=== PATIENT | male | born 1940 | race Caucasian/White ===

== ENCOUNTER 2019-11-19 20:52 | Emergency (ER) | payer MEDICARE ==
[2019-11-19 21:29] LABS: #Basophils 0.1 thou/uL (0.0-0.2); #Eosinphils 0.3 thou/uL (0.0-0.7); #Lymphocytes 1.4 thou/uL (1.20-3.40); #Monocytes 0.7 thou/uL (0.11-0.59); #Neutrophils 6.6 thou/uL (1.40-6.50); %Basophils 0.8 % (0.0-1.0); %Eosinophils 2.9 % (0.0-10.0); %Lymphocytes 15.9 % (21.0-51.0); %Monocytes 7.2 % (0.0-10.0); %Neutrophils 73.1 % (42.0-75.0); Hemoglobin 13.2 g/dL (14.0-18.0); Mean Corpuscular HGB CONC 34.8 g/dL (32.0-36.0); Mean Corpuscular Hemoglobin 30.7 pg (27.0-31.0); Mean Corpuscular Volume 88.3 fL (78.0-98.0); Platelet Count 193 thou/uL (130-400); RBC Distribution Width 11.8 % (11.5-14.5)
[2019-11-19 21:51] LABS: ALT (SGPT) 19 U/L (8-55); AST (SGOT) 20 U/L (5-34); Albumin 4.2 g/dL (3.4-4.8); Alkaline Phosphatase 48 U/L (40-110); Anion Gap 16 mmol/L (10-20); BUN (Urea Nitrogen) 42 mg/dL (8.4-25.7); Bilirubin, Total 0.3 mg/dL (0.2-1.2); Calc. Creatinine Clearance 0 mL/min (70-130); Calcium 9.1 mg/dL (7.8-10.44); Carbon Dioxide 29 mmol/L (23-31); Chloride 100 mmol/L (98-107); Estimated GFR-MDRD 28; Globulin 3.5 g/dL (2.4-3.5); Glucose 102 mg/dL (83-110); Potassium 3.8 mmol/L (3.5-5.1); Protein, Total 7.7 g/dL (5.8-8.1); Sodium 141 mmol/L (136-145)
== END 2019-11-20 00:08 | disposition home or self-care (01) ==
LOC: ERS 20:52
DX: E11.649 Type 2 diabetes mellitus with hypoglycemia without coma (principal); E11.22 Type 2 diabetes mellitus with diabetic chronic kidney disease; I12.9 Hypertensive chronic kidney disease with stage 1 through stage 4 chronic kidney disease, or unspecified chronic kidney disease; N18.4 Chronic kidney disease, stage 4 (severe); E78.5 Hyperlipidemia, unspecified; I42.9 Cardiomyopathy, unspecified; F32.9 Major depressive disorder, single episode, unspecified; Z79.4 Long term (current) use of insulin; Z79.899 Other long term (current) drug therapy
CPT/HCPCS: 36416; 80053; 85025; 99283

== ENCOUNTER 2020-07-16 07:36 | Inpatient (IN) | payer MEDICARE ==
[2020-07-16 08:28] LABS: #Basophils 0.1 thou/uL (0.0-0.2); #Eosinphils 0.3 thou/uL (0.0-0.7); #Lymphocytes 1.5 thou/uL (1.20-3.40); #Monocytes 0.8 thou/uL (0.11-0.59); #Neutrophils 10.5 thou/uL (1.40-6.50); %Basophils 0.5 % (0.0-1.0); %Eosinophils 2.1 % (0.0-10.0); %Lymphocytes 11.3 % (21.0-51.0); %Monocytes 6.1 % (0.0-10.0); Hemoglobin 13.7 g/dL (14.0-18.0); Mean Corpuscular Hemoglobin 27.8 pg (27.0-31.0); Mean Corpuscular Volume 86.8 fL (78.0-98.0); Mean Platelet Volume 9.8 fL (7.4-10.4); Platelet Count 285 thou/uL (130-400); RBC Distribution Width 12.2 % (11.5-14.5); Red Blood Cell (RBC) Count 4.93 mill/uL (4.70-6.10); White Blood Cell (WBC) Count 13.1 thou/uL (4.8-10.8)
[2020-07-16] MEDS ORDERED: Boostrix 0.5 ML (Tdap) VIAL ONE (08:31)
[2020-07-16 08:58] LABS: Bacteria/HPF 2+ HPF (None Seen); Bilirubin Negative (Negative); Blood, Urine 1+ (Negative); Clarity Turbid (Clear); Glucose, Urine (Dipstick) Normal (Negative); Ketone, Urine Negative (Negative); Leukocyte 500 Leu/uL (Negative); Nitrite 2+ (Negative); Protein, Urine (Dipstick) 70 mg/dL (Neg-Trace); Specific Gravity, Urine 1.015 (1.002-1.036); Squamous Epithelial 0-3 HPF (0-3); Urobilinogen Normal mg/dL (Less than 2); WBC/HPF Greater than 50 HPF (0-3)
[2020-07-16 09:03] LABS: PTT 32.6 sec (22.9-36.1); Prothrombin Time 13.7 sec (12.0-14.7)
[2020-07-16] MEDS ORDERED: VANCOMYCIN 1.75 GM/350 ML BAG 1.75 GM in Premix Bag 1 BAG IVPB SCH (10:00)
[2020-07-16 10:32] LABS: Albumin 3.3 g/dL (3.4-4.8)
[2020-07-16 10:33] LABS: Calcium 8.8 mg/dL (7.8-10.44); Chloride 97 mmol/L (98-107); Sodium 138 mmol/L (136-145)
[2020-07-16 10:34] LABS: Globulin 3.7 g/dL (2.4-3.5); Glucose 95 mg/dL (83-110)
[2020-07-16 10:36] LABS: Anion Gap 14 mmol/L (10-20); Bilirubin, Total 0.8 mg/dL (0.2-1.2); Carbon Dioxide 30 mmol/L (23-31)
[2020-07-16 10:37] LABS: Alkaline Phosphatase 73 U/L (40-110); Calc. Creatinine Clearance 0 mL/min (70-130)
[2020-07-16 10:43] LABS: ALT (SGPT) 11 U/L (8-55); AST (SGOT) 15 U/L (5-34); BUN (Urea Nitrogen) 12 mg/dL (8.4-25.7); CK (CPK) 36 U/L (30-200); Lipase 20 U/L (8-78)
--- NOTE | 2020-07-16 11:09 | CT ---
CT Cervical Spine WO Con Indication: Fall with altered mental status and possible neck injury COMPARISON: None. FINDINGS: Spinal alignment: No acute malalignment. Craniocervical junction: Within normal limits. Fracture: None. Vertebral body heights: Maintained. Prevertebral soft tissues:Normal appearing. Cervical spine degenerative change: There is mild multilevel cervical spondylosis. There is diffuse o steopenia. Lung apices: There is mild scarring within the left lung apex. IMPRESSION: No acute osseous abnormality.
--- NOTE | 2020-07-16 11:09 | CT ---
CT HEAD WITHOUT IV CONTRAST COMPARISON: None HISTORY: Altered mental status after fall. TECHNIQUE: Axial CT imaging at 5 mm intervals from vertex through skull base without contrast FINDINGS: There is decreased attenuation in the periventricular white matter which is nonspecific but likely re flective of chronic small vessel ischemic changes. There is mild cerebral volume loss. The ventricular system is normal in size, shape, and position for the degree of sulcal atrophy. There is no evidence of an acute infarction, hemorrhage, mass effect, or midline shift. Skull base has a normal CT appearance. Visualized paranasal sinuses are clear. Osseous structures appear intact. IMPRESSION: 1. No acute intracranial abnormality demonstrated. 2. Chronic small vessel ischemic changes and cerebral volume loss.
--- NOTE | 2020-07-16 11:20 | CT ---
CT OF THE CHEST, ABDOMEN AND PELVIS WITH IV CONTRAST CT OF THE THORACIC AND LUMBAR SPINE WITH CONTRAST INDICATION: History of fall with complaints of back pain COMPARISON: CT the abdomen and pelvis without contrast FINDINGS: CHEST: Lungs:No pulmonary contusion or pneumothorax evident. There are 2 sub-4 mm subpleural pulmonary nodul es within the right upper lobe laterally on image 29 series 3. There is scattered areas of subsegmental volume loss. There is areas of mild bronchiectasis and mild interstitial scarring involv ing both lower lobes. Heart and great vessels:There is a [id number] cardiomegaly. There coronary artery and thoracic aortic calcifications. Pleural space: No pneumothorax or effusion. Additional findings: There is mild aneurysmal dilatation of the distal aortic arch measuring 3.7 cm. There are severe vascular consultation involving the thoracic aorta. ABDOMEN: Liver:There is a 1.1 cm cyst within left hepatic lobe. There are scattered calcified granuloma. There are layered gallstones within the gallbladder Spleen:Calcified granuloma Pancreas:Normal appearing. Adrenal Glands:There are bilateral adrenal myelolipoma that appears similar to the comparison CT abdo men pelvis dated June 05, 2020. Kidneys:Resolution of the previously seen hydronephrosis. No focal renal lesion is evident. Aorta:There is stable excluded infrarenal abdominal aortic aneurysm measuring 5.8 cm. The aortic endo graft extending from the infrarenal abdominal aorta into both iliac arteries appear similar. Additional findings: There is a fat-containing umbilicus hernia. No free fluid or free air is demons trated. The laparoscopic gastric band is unchanged in position. PELVIS: Bowel:There is moderate amount retained stool within colon scattered diverticula. Small bowel is of n ormal caliber. Visualized stomach appears within normal limits. Gastric band as above. Bladder:Decompressed with a Gallardo catheter Reproductive structures:The prostate is enlarged measuring 5.2 cm. There are fat-containing inguinal hernias bilaterally, right greater than left. Rectum and perirectal soft tissues:Normal appearing. Additional findings: There are severe vascular calcifications seen involving the visualized vasculat ure. OSSEOUS STRUCTURES: There is a stable prominent wedge compression fracture of L1. There is a stable superior endplate com pression fracture of T12. There are age indeterminate mild wedge compression fractures of T3, T4, T5 and T6. There is diffuse osteopenia. There are healing rib fractures involving the anterior latera l right fourth through sixth ribs. There are minimally displaced acute fractures involving the anterolateral left third through sixth ribs. There is scattered degenerative and osteoarthritic changes. THORACIC AND LUMBAR SPINE: As above IMPRESSION: 1. No acute traumatic injury involving the chest, abdomen or pelvis. 2. Age-indeterminate wedge compression fractures of T3, T4, T5 and T6. Recommend correlation with the clinical examination for acute mild wedge compression fractures. A follow-up MRI may be helpful to evaluate acuity. Alternately, bone scan may be helpful to evaluate acuity. Stable compression abnorma lities of L1 and T12 as above. 3. Acute left third through sixth rib fractures. Healing appearing rib fractures involving the stephany lateral right fourth through sixth ribs. 4. Interval resolution of previously seen hydronephrosis. Gallardo catheter in decompressed bladder. 5. Cholelithiasis. 6. 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 Stable excluded infrarenal abdominal aortic aneurysm measuring 5.8 cm.
[2020-07-16] MEDS ORDERED: Iopamidol-370 76% 500 ML 1 ML ONE (11:46)
[2020-07-16 11:51] LABS: Lactic Acid 1.3 mmol/L (0.5-2.2)
[2020-07-16] MEDS ORDERED: cefTRIAXone\\ROCEPHIN 1 GM VIAL ONE (12:14)
[2020-07-16] MEDS ORDERED: hydrALAZINE 20 MG/ML VIAL SLOW IVP PRN (14:57)
[2020-07-16] MEDS ORDERED: Dextrose 50% Abboject 50 ML SYRINGE SLOW IVP PRN (14:57)
[2020-07-16] MEDS ORDERED: Ondansetron ODT 4 MG TAB PO PRN (14:57)
[2020-07-16] MEDS ORDERED: Dextrose 5% in Water 1,000 ML IV PRN (14:57)
[2020-07-16] MEDS ORDERED: Morphine 2 MG/ML VIAL SLOW IVP PRN (14:57)
[2020-07-16] MEDS ORDERED: Cyclobenzaprine 10 MG TAB PO PRN (15:04)
[2020-07-16] MEDS ORDERED: traMADol HCl 50 MG TAB PO PRN (15:05)
[2020-07-16] MEDS: traMADol HCl 50 MG TAB PO SCH ×2 (17:32→21:20)
[2020-07-16] MEDS: Acetaminophen 500 MG TAB PO SCH ×2 (17:32→21:19)
[2020-07-16] MEDS: Insulin Regular 300 UNITS/3 ML VIAL SC PRN ×2 (17:39→21:23)
[2020-07-16] MEDS: Diazepam 5 MG TAB PO SCH (21:17)
[2020-07-16] MEDS: Famotidine 20 MG TAB PO SCH (21:17)
[2020-07-16] MEDS: Gabapentin 100 MG CAP PO SCH (21:18)
[2020-07-16 22:19] LABS: SARS-CoV-2 PCR by NAA Not Detected (NotDetected)
--- NOTE | 2020-07-17 03:45 | HP ---
REQUESTING: ER resident. CONSULT: Neurosurgery, Dr. Bello. CHIEF COMPLAINT: Fall at his assisted, back pain. HISTORY OF PRESENT ILLNESS: This is a 80-year-old gentleman with past medical history of insulin-dependent diabetes, hypertension, hyperlipidemia, chronic kidney disease, and urinary retention, urinary obstruction, who presented to the emergency room after a fall. The patient is being treated for urinary tract infection, currently on ciprofloxacin. The patient reports getting up in the middle of the night to use the restroom when he fell. He was unsure how long he was on the ground. The patient is oriented to person, place, and time. The patient complains of back pain. The patient denies any numbness or tingling to any extremities. The patient denies feeling lightheaded, dizzy, shortness of breath, or having chest pain before falling. The patient was evaluated in the emergency room and was given 2700 mL of fluid as he was thought to be in urosepsis. The patient was also given broad-spectrum antibiotics including vancomycin and Rocephin. The patient's vital signs were stable on arrival to the ER and the patient was afebrile. The patient was also given a tetanus injection in the emergency room. REVIEW OF SYSTEMS: A 10-point review of systems is negative unless otherwise indicated in the above HPI. PAST MEDICAL HISTORY: Diabetes, hypertension, urinary tract obstruction with creatinine of 6.51, cardiomyopathy, depression. SURGICAL HISTORY: Gastric balloon. FAMILY HISTORY: No pertinent history reported. SOCIAL HISTORY: Denies tobacco use, lives at [facility], denies alcohol use. ALLERGIES: CODEINE. CURRENT MEDICATIONS: 1. Isosorbide. 2. Insulin. 3. Sertraline. 4. Torsemide. 5. Zyrtec. 6. Aspirin 81 mg. 7. Tamsulosin. 8. Crestor. OBJECTIVE: VITAL SIGNS: Blood pressure 149/83, pulse 90, respirations 20, temperature 97.7, SpO2 of 100% on 2 L nasal cannula. GENERAL: Well-appearing elderly male, awake, alert, in no distress. HEENT: Head is atraumatic and normocephalic. Pupils are equal bilateral, mucous membranes are moist, normal range of motion of neck, no tracheal deviation, no cervical spine tenderness. RESPIRATORY: Good inspiratory and expiratory effort, bilateral breath sounds clear. No wheezing, rales, or rhonchi. CARDIOVASCULAR: Regular rate, regular rhythm, no murmurs. ABDOMEN: Soft, nontender, nondistended. EXTREMITIES: Moves all extremities, neurovascularly intact x4, strength 5/5, tenderness to upper back. NEUROLOGIC: No focal deficits, equal mid level game designer and plantar flexion and dorsiflexion 5/5. SKIN: Warm, dry, normal color. LABORATORY DATA: WBC 13.1, RBC 4.93, hemoglobin 13.7, hematocrit 42.8, platelets 285. Sodium 138, potassium 3.0, chloride 97, BUN 12, creatinine 0.96, estimated GFR 76. Lactate 2.8, improved to 1.3. Troponin 0.048, this appears to be his baseline. Albumin 3.3, magnesium 2.0, phosphorus 4.0. Urinalysis; 2+ nitrites, positive leukocyte esterase, rbc's and wbc's greater than 50, 2+ bacteria, culture pending. Brain CT, impression; no acute intracranial abnormality, chronic small vessel ischemic changes and cerebral volume loss. Chest, abdomen, and pelvis CT, impression; no acute traumatic injury involving the chest, abdomen, or pelvis. Age indeterminate wedge compression fracture of T3, T4, T5, and T6. Recommend correlation. Stable compression abnormalities of L1 and T12. Acute left 3rd through 6th rib fractures. Healing rib fractures, right 4th through 6th. Interval resolution of previously seen hydronephrosis. Gallardo catheter in decompressed bladder. Cholelithiasis. 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 Stable excluded infrarenal abdominal aortic aneurysm measuring 5.[address], impression; no acute osseous abnormalities. There is mild scarring within the left lung apex. ASSESSMENT: 1. Status post mechanical fall. 2. Wedge compression fracture, T3 through T6. 3. Left rib fractures, 3 through 6. 4. Catheter-associated urinary tract infection, on admission. 5. Hypokalemia. 6. 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 7. History of hydronephrosis, resolved; urinary obstruction with acute kidney injury; diabetes; hypertension; cardiomyopathy. PLAN: Admit to the surgical floor. Pending Neurosurgery evaluation and recommendations. In the meantime, we will have the patient flat and spinal precautions. Pain control. Pending urine culture. We will continue IV antibiotics for complicated urinary tract infection on admission. PT and OT to evaluate and treat after Neurosurgery's recommendations. The patient does not appear to be septic. We will replace electrolytes and repeat labs in the morning. The plan was discussed with the attending. Job ID: [id number]
[2020-07-17] MEDS: Acetaminophen 500 MG TAB PO SCH ×4 (04:53→22:58)
[2020-07-17] MEDS: traMADol HCl 50 MG TAB PO SCH ×4 (04:53→22:58)
[2020-07-17 06:05] LABS: #Basophils 0.1 thou/uL (0.0-0.2); #Eosinphils 0.4 thou/uL (0.0-0.7); #Monocytes 0.5 thou/uL (0.11-0.59); #Neutrophils 5.2 thou/uL (1.40-6.50); %Basophils 0.7 % (0.0-1.0); %Eosinophils 4.8 % (0.0-10.0); %Lymphocytes 24.7 % (21.0-51.0); %Monocytes 6.4 % (0.0-10.0); %Neutrophils 63.4 % (42.0-75.0); Hemoglobin 11.1 g/dL (14.0-18.0); Mean Corpuscular HGB CONC 33.3 g/dL (32.0-36.0); Platelet Count 224 thou/uL (130-400); RBC Distribution Width 12.1 % (11.5-14.5); Red Blood Cell (RBC) Count 3.83 mill/uL (4.70-6.10); White Blood Cell (WBC) Count 8.2 thou/uL (4.8-10.8)
[2020-07-17 06:51] LABS: Anion Gap 13 mmol/L (10-20); BUN (Urea Nitrogen) 11 mg/dL (8.4-25.7); Calc. Creatinine Clearance 98 mL/min (70-130); Calcium 8.1 mg/dL (7.8-10.44); Carbon Dioxide 28 mmol/L (23-31); Chloride 102 mmol/L (98-107); Glucose 129 mg/dL (83-110); Magnesium 1.8 mg/dL (1.6-2.6); Phosphorus 3.3 mg/dL (2.3-4.7); Potassium 3.1 mmol/L (3.5-5.1); Sodium 140 mmol/L (136-145)
[2020-07-17] MEDS ORDERED: Magnesium 2 GM/50 ML 2 GM in Premix Bag 1 BAG IVPB SCH (09:00)
[2020-07-17] MEDS ORDERED: Potassium Chloride 10 MEQ TAB PO SCH (09:00)
[2020-07-17] MEDS: Famotidine 20 MG TAB PO SCH ×2 (09:19→21:50)
[2020-07-17] MEDS: Aspirin 81 mg Enteric Coated Tablet PO SCH (09:19)
[2020-07-17] MEDS: Polyethylene Glycol 3350 17 GM Packet PO SCH (09:19)
[2020-07-17] MEDS: Potassium Chloride 10 MEQ TAB PO SCH ×2 (09:19→21:51)
[2020-07-17] MEDS: Amlodipine 10 MG TAB PO SCH (09:20)
[2020-07-17] MEDS: Carvedilol 3.125 MG TAB PO SCH (09:20)
[2020-07-17] MEDS: Diazepam 5 MG TAB PO SCH ×2 (09:20→21:51)
[2020-07-17] MEDS: Loratadine 10 MG TAB PO SCH (09:20)
[2020-07-17] MEDS: Gabapentin 100 MG CAP PO SCH ×3 (09:20→21:50)
[2020-07-17] MEDS: Atorvastatin Calcium 40 MG TAB PO SCH (09:20)
[2020-07-17] MEDS: Tamsulosin HCl 0.4 MG CAP PO SCH (09:23)
[2020-07-17] MEDS: Torsemide 100 MG TAB PO SCH (09:33)
[2020-07-17] MEDS ORDERED: cefTRIAXone\\ROCEPHIN 1 GM in Sodium Chloride 0.9% 100 ML IVPB SCH (12:00)
[2020-07-17 12:09] VITALS: BMI 33.0
[2020-07-17] MEDS: Insulin Regular 300 UNITS/3 ML VIAL SC PRN (15:57)
[2020-07-18] MEDS: Acetaminophen 500 MG TAB PO SCH ×2 (04:22→10:49)
[2020-07-18] MEDS: traMADol HCl 50 MG TAB PO SCH ×3 (04:22→15:01)
[2020-07-18] MEDS: Insulin Regular 300 UNITS/3 ML VIAL SC PRN (04:22)
[2020-07-18 05:28] LABS: #Basophils 0.1 thou/uL (0.0-0.2); #Eosinphils 0.5 thou/uL (0.0-0.7); #Lymphocytes 1.7 thou/uL (1.20-3.40); #Monocytes 0.6 thou/uL (0.11-0.59); #Neutrophils 5.6 thou/uL (1.40-6.50); %Eosinophils 5.8 % (0.0-10.0); %Lymphocytes 20.5 % (21.0-51.0); %Monocytes 6.6 % (0.0-10.0); %Neutrophils 66.1 % (42.0-75.0); Hemoglobin 11.2 g/dL (14.0-18.0); Mean Corpuscular HGB CONC 33.3 g/dL (32.0-36.0); Mean Corpuscular Hemoglobin 29.4 pg (27.0-31.0); Mean Corpuscular Volume 88.1 fL (78.0-98.0); Mean Platelet Volume 8.9 fL (7.4-10.4); Platelet Count 209 thou/uL (130-400); White Blood Cell (WBC) Count 8.5 thou/uL (4.8-10.8)
[2020-07-18 05:49] LABS: Anion Gap 10 mmol/L (10-20); BUN (Urea Nitrogen) 15 mg/dL (8.4-25.7); Calc. Creatinine Clearance 80 mL/min (70-130); Carbon Dioxide 33 mmol/L (23-31); Chloride 101 mmol/L (98-107); Glucose 198 mg/dL (83-110); Magnesium 1.7 mg/dL (1.6-2.6); Phosphorus 3.4 mg/dL (2.3-4.7); Potassium 3.3 mmol/L (3.5-5.1); Sodium 141 mmol/L (136-145)
--- NOTE | 2020-07-18 08:06 | PRG ---
DATE OF SERVICE: 07/17/2020 SUBJECTIVE: Mr. Lozoya is a 80-year-old male patient, admitted for urosepsis with fall in the middle of night when getting up to use the restroom in rehab. The patient was transported from [facility] to [facility]. Patient was seen resting comfortably in bed this morning, difficulty hearing while talking with the patient. The patient is not complaining of pain or discomfort. Patient is able to take big deep breaths and able to cough without chest pain. He is on room air. The patient tolerating regular diet and voiding spontaneously and Gallardo catheter. His Gallardo catheter was placed previous visit due to obstructive nephrosis. The patient was to followup with Dr. Jean regarding Gallardo catheter placement and cystoscopy. OBJECTIVE: VITAL SIGNS: Temperature 98, pulse 79, respiratory rate 24, 97% O2 saturation on room air, blood pressure 117/64. Urine output 2.7 L in the last 24 hours. GENERAL: No acute distress, resting comfortably in bed. HEENT: His head is normocephalic, atraumatic. LUNGS: Speaking full sentences. No respiratory distress, on room air. CARDIAC: Regular rate and rhythm. ABDOMEN: Soft, nontender. EXTREMITIES: Sensation intact bilaterally. Patient is moving upper and lower extremities. LABORATORY DATA: White blood cell count 8.2, hemoglobin 11.1, hematocrit 33.3, platelet count 224. Chemistry; sodium 140, potassium 3.1, chloride 102, bicarb 28, BUN 11, creatinine 0.82, phosphorus 3.3, magnesium 1.8. UA, prelim, microbiology, enterococcus, awaiting sensitivity. Brain CT, no acute intracranial abnormalities, chronic small-vessel ischemia. Chest, abdomen, and pelvis, indeterminate wedge compression fracture T3, T4, T5, T6. Stable compression fracture, L1 and T12, acute left 3 through 6 rib fracture. Healing 4th through 6th. Interval resolution of previously seen hydronephrosis. Hydronephrosis improving, decompressed bladder, Gallardo in place. Cholelithiasis. 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 Stable excluded infrarenal abdominal aortic aneurysm measuring 5.8. Cervical spine CT, no acute osseous abnormalities. There is mild scarring within the left lung apex. ASSESSMENT: 1. Status post fall. 2. Age indeterminate wedge compression fracture of T3 to T6. 3. Left rib fractures, 3 through 6. 4. Catheter-associated urinary tract infection, improving on antibiotics. 5. Hypokalemia, improving. 6. Incidental finding of distal aortic arch aneurysm 3.7 cm, infrarenal 5.8 cm. 7. History of hydronephrosis, resolved urinary obstruction with acute kidney injury, diabetes, hypertension, cardiomyopathy. PLAN: Patient can be discharged tomorrow back to [facility] after culture and sensitivities have resulted. We will continue current antibiotic regimen. On prelim report is growing enterococcus. Continue pain and bowel regimen. Replete electrolytes, potassium 4, phos 3, magnesium 2. Continue PT/OT to evaluate. Neurosurgery, no acute intervention required. Discussed case with Cardiology regarding incidental finding of aortic aneurysms. Job ID: [id number]
[2020-07-18] MEDS ORDERED: Potassium Phosphate 40 MMOL in Sodium Chloride 0.9% 250 ML 250 ML IVPB SCH (09:00)
[2020-07-18] MEDS ORDERED: Nitrofurantoin Monohyd/M-Cryst 100 MG CAP PO SCH (09:00)
[2020-07-18] MEDS: Polyethylene Glycol 3350 17 GM Packet PO SCH (09:46)
[2020-07-18] MEDS: Atorvastatin Calcium 40 MG TAB PO SCH (09:46)
[2020-07-18] MEDS: Diazepam 5 MG TAB PO SCH (09:46)
[2020-07-18] MEDS: Aspirin 81 mg Enteric Coated Tablet PO SCH (09:47)
[2020-07-18] MEDS: Potassium Chloride 10 MEQ TAB PO SCH (09:47)
[2020-07-18] MEDS: Tamsulosin HCl 0.4 MG CAP PO SCH (09:47)
[2020-07-18] MEDS: Torsemide 100 MG TAB PO SCH (09:47)
[2020-07-18] MEDS: Famotidine 20 MG TAB PO SCH (09:47)
[2020-07-18] MEDS: Loratadine 10 MG TAB PO SCH (09:47)
[2020-07-18] MEDS: Carvedilol 3.125 MG TAB PO SCH (09:49)
[2020-07-18] MEDS: Amlodipine 10 MG TAB PO SCH (09:49)
[2020-07-18] MEDS: Gabapentin 100 MG CAP PO SCH ×2 (09:50→15:02)
[2020-07-18] MEDS: Magnesium Sulfate 3 GM in Sodium Chloride 0.9% 100 ML IV SCH ×2 (10:49→15:00)
[2020-07-18 16:21] VITALS: BP 153/72; TEMP 98
--- NOTE | 2020-07-19 10:23 | DIS ---
DATE OF ADMISSION: 07/16/2020 DATE OF DISCHARGE: 07/18/2020 PROCEDURES PERFORMED: None. ADMISSION DIAGNOSES: 1. Ground level fall. 2. Age indeterminate old T3-T6 wedge fracture. 3. Left rib fractures, 3 through 6. 4. Urinary tract infection. 5. Hypokalemia. HOSPITAL COURSE: A 80-year-old gentleman with past medical history of diabetes, hypertension, hyperlipidemia, CKD, and urinary retention with obstruction, presents to the emergency department after a fall. The patient was recently hospitalized for hydronephrosis, for which he received ciprofloxacin for. The patient had a Gallardo placed in his bladder for hydronephrosis, for which he was followed by Dr. Jean outpatient. When the patient came into the emergency department, he was complaining of back pain. CT scan was done of the spine, which showed no cervical abnormalities. CT of chest, abdomen, and pelvis was done, which showed age indeterminate wedge compression fractures of T3, T4, T5, and T6 on the right and compression abnormalities at L1 and T12, which are chronic in nature. There were acute left 3rd through 6th rib fractures. CT also shows old rib fractures on the right, 4 through 6, healing appropriately with interval resolution of hydronephrosis. Incidental finding of cholelithiasis and distal aortic arch aneurysm measuring 3.5 cm and infrarenal abdominal aortic aneurysm measuring 5.8 cm. The patient is being followed by Cardiothoracic Surgery for the aneurysm. CT head was performed. No acute intracranial abnormalities. Chronic small-vessel ischemic changes and cerebral volume loss. Neurosurgery was consulted and after reviewing CT abdomen and pelvis, they report the fractures are chronic in nature and there is no acute intervention required. The patient was started on antibiotics in the emergency department for his urosepsis. The patient never spiked a fever while he was in the ED. His blood pressure did drop to 90/70 in the emergency department. While the patient was in the hospital, urinary cultures grew Enterococcus faecalis, which is chronic in nature. The patient's Gallardo catheter was removed and did trial void. The patient voided 60 mL. Postvoid residual showed 600 mL. A Gallardo was placed. Urine output was 600 mL. The patient was given appointment to follow up with Dr. Jean in 2 weeks to repeat trial of void. The patient's pain was managed with Tylenol, ibuprofen, and tramadol. The patient was able to take deep breaths in, cough without pain, and incentive spirometer goal was reduced at 1500 mL. The patient's rib fracture pain is well controlled at this time. On room air, he was saturating at 94%. The patient was discharged back to [facility] with Gallardo in place, Macrobid for 10 days, and to follow up with Dr. Jean. The patient was instructed to follow up with his primary care doctor as well. PHYSICAL EXAMINATION: VITAL SIGNS: At time of discharge, temperature is 98, pulse is 74, respiratory rate is 24, O2 saturation 92% on room air, blood pressure was 153/72. GENERAL: The patient is resting comfortably in bed. No acute distress. Speaking full sentences. HEENT: Head, normocephalic and atraumatic. Trachea is midline. LUNGS: Equal breath sounds bilaterally. No accessory muscle use. EXTREMITIES: Diminished strength in upper and lower extremities. Sensation intact in upper and lower extremities. +2 DP and PT bilaterally. LABORATORY DATA: At time of discharge, white blood cell count 8.5, hemoglobin 11.2, hematocrit 33.5, platelets 209. Chemistry; sodium 141, potassium 3.3, chloride 101, bicarb 33, BUN 15, creatinine 1, phosphorus 2.4, magnesium 1.7. CAT scan of cervical spine shows no acute osseous abnormalities. CT of chest, abdomen, and pelvis; 1. No acute traumatic injuries involving the chest, abdomen, and pelvis. 2. Age indeterminate wedge compression fracture of T3, T4, T5, and T6. 3. Acute left 3rd through 6th rib fractures. Healing right 4th through 6th rib fractures. 4. Interval resolution seen of hydronephrosis. 5. Cholelithiasis. 6. Distal aortic arch aneurysm, 3.5 cm, stable, excluded infrarenal abdominal aortic aneurysm measuring 5.[address] brain, no acute intracranial abnormalities demonstrated. Chronic small- vessel ischemic changes and cerebral volume loss. ASSESSMENT: 1. Status post mechanical fall. 2. Age indeterminate wedge compression fractures, T3 through T6. 3. Left rib fractures, 2 through 6. 4. Catheter associated urinary tract infection. 5. Hypokalemia. 6. Incidental aortic arch aneurysm, 3.5 cm; infrarenal aortic aneurysm measuring 5.8 cm. 7. History of hydronephrosis, resolved. 8. Urinary obstruction. 9. Acute kidney injury,resolved 10. pmhx Diabetes, Hypertension, Cardiomyopathy. PLAN: Start the patient on Macrobid for 10 days. Gallardo catheter replaced in the hospital. The patient failed trial of void in the hospital, routine 600 mL, Gallardo catheter reinserted. Follow up with Dr. Jean in 2 weeks. Per Neurosurgery, wedge compression fractures are chronic in nature, T3 through T6. No intervention is required. Rib fractures, left, 3 through 6; pain is well controlled. The patient takes a deep breath, able to cough without pain and is meeting incentive spirometer goals. The patient has been medically optimized and is safe to return to the [facility] for prison care. Time writing and reviewing document 30 min Job ID: [id number] MTDD
--- NOTE | 2020-07-19 12:19 | PQF ---
CLINICAL DOCUMENTATION CLARIFICATION FORM: Dear Dr. Milad Solis Date: 07.19.20 Please exercise your independent, professional judgment in responding to the clarification form. Clinical indicators are provided on the bottom of this form for your review. Please check appropriate box(es) to clarify if the following diagnosis has been ruled in our ruled out: Sepsis secondary to Catheter -associated UTI [ ] Ruled in diagnosis [ ] Continue to treat [ ] Resolved [ X ] Ruled out diagnosis [ ] Improving [ ] Cannot rule out diagnosis [ x ] Other diagnosis UTI chronic indwelling catheter [ ] Unable to determine For continuity of documentation, please document condition throughout progress notes and discharge summary. Thank You. To be completed by CDI/Coding staff for physician review: CLINICAL INDICATORS - SIGNS / SYMPTOMS / LABS / RESULTS AND LOCATION IN ED: SEVERE SEPSIS W/O SEPTIC SHOCK wedge fx thoracic spine; fall; pyelonephritis rib fx; P 84-90 RR18-21 on RA and 2LNC T 98.1 oral LABS: WBC Lactic Acid 2.26 13.1 2.8 2.27 PN (Will): * admitted for Urosepsis w/ fall ; catheter-associated urinary tract infection RISK FACTORS / RESULTS AND [facility]ATION [facility] 2.26 [facility] * CKD stage 4; DM2; HTN; urinary retention, urinary obstruction * s/p fall getting up in the middle of the night to use the restroom * From Lamp[facility] * Catheter-associated UTI TREATMENTS / RESULTS AND LOCATION IN ED: Vancomycin IV (2.26) Ceftiaxone IV (2.26) NS IV 2700 ml (2.26) MAR: Rocephin IV (2.27) CDS Signature: Phuong Guerrier RN, CCDS Phone #: [phone] [email or web address] This is a permanent part of the Medical Record [facility]
== END 2020-07-18 16:51 | DRG 184 ==
LOC: ERS 07:36 → ERHOLD 11:44 → SURG B 16:19
PROVIDERS: ADMIT Surgery; ATTEND Surgery
DX: S22.41XA Multiple fractures of ribs, right side, initial encounter for closed fracture (principal); T83.511A Infection and inflammatory reaction due to indwelling urethral catheter, initial encounter; S22.030A Wedge compression fracture of third thoracic vertebra, initial encounter for closed fracture; S22.040A Wedge compression fracture of fourth thoracic vertebra, initial encounter for closed fracture; S22.050A Wedge compression fracture of T5-T6 vertebra, initial encounter for closed fracture; N39.0 Urinary tract infection, site not specified; N18.4 Chronic kidney disease, stage 4 (severe); I42.9 Cardiomyopathy, unspecified; N17.9 Acute kidney failure, unspecified; E87.6 Hypokalemia; Y83.9 Surgical procedure, unspecified as the cause of abnormal reaction of the patient, or of later complication, without mention of misadventure at the time of the procedure; I71.9 Aortic aneurysm of unspecified site, without rupture; Z20.822 Contact with and (suspected) exposure to COVID-19; E78.5 Hyperlipidemia, unspecified; E11.22 Type 2 diabetes mellitus with diabetic chronic kidney disease; I12.9 Hypertensive chronic kidney disease with stage 1 through stage 4 chronic kidney disease, or unspecified chronic kidney disease; F32.9 Major depressive disorder, single episode, unspecified; Z88.6 Allergy status to analgesic agent; Z79.4 Long term (current) use of insulin; Z79.82 Long term (current) use of aspirin; Z79.899 Other long term (current) drug therapy; W18.30XA Fall on same level, unspecified, initial encounter
CPT/HCPCS: 36415; 36416; 51702; 70450; 71260; 72125; 74177; 80048; 80053; 81003; 81015; 82550; 82553; 83605; 83690; 83735; 83880; 84100; 84484; 85025; 85610; 85730; 87040; 87077; 87086; 87186; 87635; 90471; 90715; 93005; 96365; 96366; 96367; J0696; J1815; J3370; J3475; J3490; Q9967; U0003; U0005

== ENCOUNTER 2022-02-03 12:56 | Inpatient (IN) | payer MEDICARE, MEDICAID ==
[~2022-02-03 12:56] MED LIST: Iopamidol-370 76% 500 ML 1 ML ONE
[2022-02-03] MEDS ORDERED: Aspirin 300 MG Suppository ONE (13:44)
[2022-02-03] MEDS ORDERED: cefTRIAXone\\ROCEPHIN 2 GM VIAL ONE (13:49)
[2022-02-03 14:04] LABS: Hemoglobin 13.3 g/dL (14.0-18.0); Mean Corpuscular HGB CONC 33.3 g/dL (32.0-36.0); Mean Corpuscular Hemoglobin 30.4 pg (27.0-31.0); Mean Corpuscular Volume 91.3 fL (78.0-98.0); Mean Platelet Volume 9.4 fL (7.4-10.4); Platelet Count 231 thou/uL (130-400); Red Blood Cell (RBC) Count 4.38 mill/uL (4.70-6.10); White Blood Cell (WBC) Count 25.5 thou/uL (4.8-10.8)
[2022-02-03 14:13] LABS: Prothrombin Time 15.2 sec (12.0-14.7)
[2022-02-03 14:16] LABS: INR-International Normal Ratio 1.2
[2022-02-03 14:19] LABS: Amphetamine Not Detected (NotDetected); Barbiturates Screen Not Detected (NotDetected); Benzodiazepine Screen Detected (NotDetected); Clarity Extra Turbid (Clear); Cocaine Metabolite Screen Not Detected (NotDetected); Methadone Not Detected (NotDetected); Methamphetamine Not Detected (NotDetected); Opiate Screen Not Detected (NotDetected); Oxycodone Screen Not Detected (NotDetected); Phencyclidine (PCP) Not Detected (NotDetected); THC/Cannabinoid Screen Not Detected (NotDetected); Tricyclic Screen Not Detected (NotDetected)
[2022-02-03 14:20] LABS: Band 21 % (5-11); Lymphocytes 10 % (21-51); MDiff Complete? YES; Metamyelocyte 1 % (0-0); Monocytes 3 % (0-10); Neutrophil 65 % (42-75); Platelet Morphology Comment Appears Adequate; RBC Morphology Normal
[2022-02-03 14:20] LABS: Glucose, Urine (Dipstick) Unable to Interpret mg/dL (Negative); Ketone, Urine Unable to Interpret mg/dL (Negative); Leukocyte Unable to Interpret (Negative); Nitrite Unable to Interpret (Negative); Protein, Urine (Dipstick) Unable to Interpret mg/dL (Neg-Trace); Specific Gravity, Urine 1.014 (1.002-1.036); pH, Urine 5.3 (5.0-9.0)
[2022-02-03 14:21] LABS: Bilirubin Unable to Interpret (Negative); Blood, Urine Unable to Interpret (Negative); Urobilinogen UNABLE TO INTERPRET mg/dL (Less than 2)
[2022-02-03 14:22] LABS: RBC/HPF 0-3 HPF (0-3); WBC/HPF Greater than 50 HPF (0-3)
[2022-02-03 14:23] LABS: Bacteria/HPF 4+ HPF (None Seen); Squamous Epithelial None Seen HPF (0-3)
[2022-02-03 14:30] LABS: PTT 35.4 sec (22.9-36.1)
[2022-02-03 14:32] LABS: ALT (SGPT) 7 U/L (8-55); AST (SGOT) 15 U/L (5-34); Acetaminophen Less than 10.0 mcg/mL (10.0-30.0); Albumin 3.6 g/dL (3.4-4.8); Alcohol Less than 10 mg/dL (Less than 10); Alkaline Phosphatase 79 U/L (40-110); Anion Gap 16 mmol/L (10-20); BUN (Urea Nitrogen) 34 mg/dL (8.4-25.7); Bilirubin, Total 1.6 mg/dL (0.2-1.2); CK (CPK) 39 U/L (30-200); Calc. Creatinine Clearance 0 mL/min (70-130); Calcium 9.7 mg/dL (7.8-10.44); Carbon Dioxide 24 mmol/L (23-31); Chloride 103 mmol/L (98-107); Estimated GFR 36; Glucose 165 mg/dL (83-110); Potassium 4.3 mmol/L (3.5-5.1); Protein, Total 7.6 g/dL (5.8-8.1); Salicylate Less than 8.0 mg/dL (15.0-30.0); Sodium 139 mmol/L (136-145)
[2022-02-03 14:44] LABS: CKMB 1.3 ng/mL (0-6.6)
[2022-02-03] MEDS ORDERED: VANCOMYCIN 1.75 GM/500 ML BAG 1.75 GM in Premix Bag 1 BAG IVPB SCH (15:15)
[2022-02-03] MEDS ORDERED: Insulin Regular 300 UNITS/3 ML VIAL SC PRN (16:46)
[2022-02-03] MEDS ORDERED: Dextrose 50% Abboject 50 ML SYRINGE SLOW IVP PRN (16:46)
[2022-02-03] MEDS ORDERED: Dextrose 5% in Water 1,000 ML IV PRN (16:46)
[2022-02-03] MEDS ORDERED: Acetaminophen 325 MG TAB PO PRN (17:07)
[2022-02-03 19:07] VITALS: BMI 34.4
[2022-02-03] MEDS: Famotidine/PF 20 mg/2ml Vial SLOW IVP SCH (20:25)
[2022-02-03] MEDS: Cefepime 1 GM in Sodium Chloride 0.9% 100 ML IVPB SCH (20:25)
[2022-02-03] MEDS: Sodium Chloride 0.9% 1,000 ML IV SCH (20:26)
[2022-02-03] MEDS: Heparin 5,000 UNITS/ML VIAL SC SCH (20:26)
[2022-02-03] MEDS: Tamsulosin HCl 0.4 MG CAP PO SCH (20:41)
[2022-02-03] MEDS: Atorvastatin Calcium 40 MG TAB PO SCH (20:41)
[2022-02-04 06:07] LABS: ALT (SGPT) 8 U/L (8-55); AST (SGOT) 11 U/L (5-34); Albumin 3.3 g/dL (3.4-4.8); Alkaline Phosphatase 72 U/L (40-110); Anion Gap 17 mmol/L (10-20); BUN (Urea Nitrogen) 41 mg/dL (8.4-25.7); Bilirubin, Total 0.8 mg/dL (0.2-1.2); Calc. Creatinine Clearance 44 mL/min (70-130); Calcium 9.2 mg/dL (7.8-10.44); Carbon Dioxide 24 mmol/L (23-31); Chloride 108 mmol/L (98-107); Estimated GFR 35; Glucose 173 mg/dL (83-110); Potassium 4.2 mmol/L (3.5-5.1); Protein, Total 7.3 g/dL (5.8-8.1); Sodium 145 mmol/L (136-145)
[2022-02-04 06:24] LABS: Band 8 % (5-11); Hemoglobin 11.8 g/dL (14.0-18.0); Lymphocytes 5 % (21-51); MDiff Complete? YES; Mean Corpuscular HGB CONC 31.9 g/dL (32.0-36.0); Mean Corpuscular Hemoglobin 29.6 pg (27.0-31.0); Mean Corpuscular Volume 92.5 fL (78.0-98.0); Mean Platelet Volume 10.1 fL (7.4-10.4); Monocytes 5 % (0-10); Neutrophil 82 % (42-75); Platelet Count 207 thou/uL (130-400); Platelet Morphology Comment Appears Adequate; RBC Distribution Width 13.1 % (11.5-14.5); RBC Morphology Normal
[2022-02-04] MEDS: Heparin 5,000 UNITS/ML VIAL SC SCH ×3 (06:27→22:07)
[2022-02-04] MEDS: Insulin Regular 300 UNITS/3 ML VIAL SC PRN ×2 (06:55→16:44)
[2022-02-04] MEDS: Sodium Chloride 0.9% 1,000 ML IV SCH (09:22)
[2022-02-04] MEDS: Famotidine/PF 20 mg/2ml Vial SLOW IVP SCH ×2 (09:23→22:07)
[2022-02-04] MEDS: Aspirin Chewable 81 MG TAB PO SCH (09:24)
[2022-02-04] MEDS: Cefepime 1 GM in Sodium Chloride 0.9% 100 ML IVPB SCH (18:23)
[2022-02-04] MEDS: Atorvastatin Calcium 40 MG TAB PO SCH (22:07)
[2022-02-04] MEDS: Tamsulosin HCl 0.4 MG CAP PO SCH (22:07)
[2022-02-05] MEDS: Sodium Chloride 0.9% 1,000 ML IV SCH ×2 (01:07→12:45)
[2022-02-05] MEDS: Insulin Regular 300 UNITS/3 ML VIAL SC PRN ×3 (06:27→18:14)
[2022-02-05 07:51] LABS: #Eosinphils 0.3 thou/uL (0.0-0.7); #Lymphocytes 1.3 thou/uL (1.20-3.40); #Monocytes 0.7 thou/uL (0.11-0.59); #Neutrophils 12.9 thou/uL (1.40-6.50); %Basophils 0.2 % (0.0-1.0); %Eosinophils 2.1 % (0.0-10.0); %Lymphocytes 8.7 % (21.0-51.0); %Monocytes 4.5 % (0.0-10.0); %Neutrophils 84.5 % (42.0-75.0); Mean Corpuscular HGB CONC 32.3 g/dL (32.0-36.0); Mean Corpuscular Hemoglobin 30.1 pg (27.0-31.0); Mean Corpuscular Volume 93.4 fL (78.0-98.0); Platelet Count 171 thou/uL (130-400); Red Blood Cell (RBC) Count 3.66 mill/uL (4.70-6.10); White Blood Cell (WBC) Count 15.3 thou/uL (4.8-10.8)
[2022-02-05 08:12] LABS: Anion Gap 12 mmol/L (10-20); BUN (Urea Nitrogen) 29 mg/dL (8.4-25.7); Calc. Creatinine Clearance 67 mL/min (70-130); Calcium 8.5 mg/dL (7.8-10.44); Carbon Dioxide 26 mmol/L (23-31); Chloride 114 mmol/L (98-107); Estimated GFR 59; Glucose 162 mg/dL (83-110); Potassium 3.6 mmol/L (3.5-5.1); Sodium 148 mmol/L (136-145)
[2022-02-05] MEDS: Heparin 5,000 UNITS/ML VIAL SC SCH ×3 (10:03→22:24)
[2022-02-05] MEDS: Aspirin Chewable 81 MG TAB PO SCH (10:03)
[2022-02-05] MEDS ORDERED: Cefepime 1 GM VIAL ONE (18:23)
[2022-02-05] MEDS: Cefepime 1 GM in Sodium Chloride 0.9% 100 ML IVPB SCH (18:28)
[2022-02-05] MEDS ORDERED: Famotidine/PF 20 mg/2ml Vial SLOW IVP SCH (21:00)
[2022-02-05] MEDS: Atorvastatin Calcium 40 MG TAB PO SCH (21:02)
[2022-02-05] MEDS: Tamsulosin HCl 0.4 MG CAP PO SCH (21:02)
[2022-02-06 05:28] LABS: #Eosinphils 0.5 thou/uL (0.0-0.7); #Lymphocytes 1.4 thou/uL (1.20-3.40); #Monocytes 0.6 thou/uL (0.11-0.59); #Neutrophils 9.3 thou/uL (1.40-6.50); %Basophils 0.2 % (0.0-1.0); %Eosinophils 4.4 % (0.0-10.0); %Lymphocytes 11.5 % (21.0-51.0); %Monocytes 4.8 % (0.0-10.0); %Neutrophils 79.1 % (42.0-75.0); Hemoglobin 10.9 g/dL (14.0-18.0); Mean Corpuscular HGB CONC 32.3 g/dL (32.0-36.0); Mean Corpuscular Hemoglobin 29.8 pg (27.0-31.0); Mean Corpuscular Volume 92.3 fL (78.0-98.0); Mean Platelet Volume 9.8 fL (7.4-10.4); Platelet Count 184 thou/uL (130-400); RBC Distribution Width 12.7 % (11.5-14.5); Red Blood Cell (RBC) Count 3.66 mill/uL (4.70-6.10); White Blood Cell (WBC) Count 11.7 thou/uL (4.8-10.8)
[2022-02-06 05:46] LABS: Anion Gap 11 mmol/L (10-20); BUN (Urea Nitrogen) 16 mg/dL (8.4-25.7); Calc. Creatinine Clearance 87 mL/min (70-130); Calcium 8.4 mg/dL (7.8-10.44); Carbon Dioxide 25 mmol/L (23-31); Chloride 111 mmol/L (98-107); Estimated GFR 81; Glucose 161 mg/dL (83-110); Sodium 144 mmol/L (136-145)
[2022-02-06] MEDS: Insulin Regular 300 UNITS/3 ML VIAL SC PRN ×2 (06:27→13:24)
[2022-02-06] MEDS: Heparin 5,000 UNITS/ML VIAL SC SCH ×2 (09:12→22:31)
[2022-02-06] MEDS: Aspirin Chewable 81 MG TAB PO SCH (09:12)
[2022-02-06] MEDS: Potassium Chloride 20 MEQ TAB PO SCH ×2 (09:12→17:15)
[2022-02-06] MEDS: Cefepime 2 GM in Sodium Chloride 0.9% 100 ML IVPB SCH ×2 (13:25→23:10)
[2022-02-06] MEDS: Atorvastatin Calcium 40 MG TAB PO SCH (22:30)
[2022-02-06] MEDS: Tamsulosin HCl 0.4 MG CAP PO SCH (22:30)
[2022-02-06] MEDS: Diazepam 5 MG TAB PO SCH (22:30)
[2022-02-06] MEDS: Docusate 100 MG CAP PO SCH (22:31)
[2022-02-06] MEDS: HumuLIN 70/30 (300 UNITS/3 ML VIAL) SC SCH (22:31)
[2022-02-06] MEDS: Carvedilol 3.125 MG TAB PO SCH (22:31)
[2022-02-07 05:58] LABS: #Eosinphils 0.5 thou/uL (0.0-0.7); #Lymphocytes 1.4 thou/uL (1.20-3.40); #Monocytes 0.7 thou/uL (0.11-0.59); #Neutrophils 7.8 thou/uL (1.40-6.50); %Basophils 0.3 % (0.0-1.0); %Eosinophils 5.1 % (0.0-10.0); %Lymphocytes 13.7 % (21.0-51.0); %Monocytes 6.9 % (0.0-10.0); Hemoglobin 11.2 g/dL (14.0-18.0); Mean Corpuscular Hemoglobin 29.4 pg (27.0-31.0); Mean Platelet Volume 9.6 fL (7.4-10.4); Platelet Count 207 thou/uL (130-400); RBC Distribution Width 12.4 % (11.5-14.5); Red Blood Cell (RBC) Count 3.82 mill/uL (4.70-6.10); White Blood Cell (WBC) Count 10.5 thou/uL (4.8-10.8)
[2022-02-07 06:18] LABS: Anion Gap 11 mmol/L (10-20); BUN (Urea Nitrogen) 11 mg/dL (8.4-25.7); Calc. Creatinine Clearance 100 mL/min (70-130); Calcium 8.4 mg/dL (7.8-10.44); Carbon Dioxide 24 mmol/L (23-31); Chloride 110 mmol/L (98-107); Estimated GFR 88; Glucose 118 mg/dL (83-110); Potassium 3.6 mmol/L (3.5-5.1); Sodium 141 mmol/L (136-145)
[2022-02-07] MEDS: Loratadine 10 MG TAB PO SCH (08:52)
[2022-02-07] MEDS: Docusate 100 MG CAP PO SCH ×2 (08:56→20:26)
[2022-02-07] MEDS: Diazepam 5 MG TAB PO SCH ×2 (08:56→20:26)
[2022-02-07] MEDS: Aspirin Chewable 81 MG TAB PO SCH (08:56)
[2022-02-07] MEDS: Amlodipine 10 MG TAB PO SCH (08:57)
[2022-02-07] MEDS: Carvedilol 3.125 MG TAB PO SCH ×2 (08:59→20:26)
[2022-02-07] MEDS: HumuLIN 70/30 (300 UNITS/3 ML VIAL) SC SCH ×2 (09:06→21:26)
[2022-02-07] MEDS: Heparin 5,000 UNITS/ML VIAL SC SCH ×2 (09:09→20:25)
[2022-02-07] MEDS: Insulin Regular 300 UNITS/3 ML VIAL SC PRN (11:15)
[2022-02-07] MEDS ORDERED: Cefepime 1 GM in Sodium Chloride 0.9% 100 ML IVPB SCH (12:00)
[2022-02-07] MEDS: Tamsulosin HCl 0.4 MG CAP PO SCH (20:26)
[2022-02-07] MEDS: Atorvastatin Calcium 40 MG TAB PO SCH (20:26)
[2022-02-08 05:38] LABS: #Eosinphils 0.5 thou/uL (0.0-0.7); #Lymphocytes 1.7 thou/uL (1.20-3.40); #Monocytes 0.7 thou/uL (0.11-0.59); #Neutrophils 7.8 thou/uL (1.40-6.50); %Basophils 0.3 % (0.0-1.0); %Eosinophils 4.6 % (0.0-10.0); %Lymphocytes 15.8 % (21.0-51.0); %Monocytes 6.6 % (0.0-10.0); %Neutrophils 72.8 % (42.0-75.0); Hemoglobin 11.3 g/dL (14.0-18.0); Mean Corpuscular HGB CONC 32.2 g/dL (32.0-36.0); Mean Corpuscular Hemoglobin 29.4 pg (27.0-31.0); Mean Corpuscular Volume 91.2 fL (78.0-98.0); Mean Platelet Volume 9.2 fL (7.4-10.4); Platelet Count 228 thou/uL (130-400); RBC Distribution Width 12.5 % (11.5-14.5); Red Blood Cell (RBC) Count 3.85 mill/uL (4.70-6.10); White Blood Cell (WBC) Count 10.7 thou/uL (4.8-10.8)
[2022-02-08 05:56] LABS: Anion Gap 12 mmol/L (10-20); BUN (Urea Nitrogen) 9 mg/dL (8.4-25.7); Calc. Creatinine Clearance 100 mL/min (70-130); Calcium 8.7 mg/dL (7.8-10.44); Carbon Dioxide 24 mmol/L (23-31); Chloride 109 mmol/L (98-107); Estimated GFR 88; Glucose 60 mg/dL (83-110); Potassium 3.5 mmol/L (3.5-5.1); Sodium 141 mmol/L (136-145)
[2022-02-08] MEDS: Amlodipine 10 MG TAB PO SCH (09:33)
[2022-02-08] MEDS: Aspirin Chewable 81 MG TAB PO SCH (09:34)
[2022-02-08] MEDS: Diazepam 5 MG TAB PO SCH (09:36)
[2022-02-08] MEDS: Heparin 5,000 UNITS/ML VIAL SC SCH (09:36)
[2022-02-08] MEDS: Loratadine 10 MG TAB PO SCH (09:36)
[2022-02-08] MEDS: Docusate 100 MG CAP PO SCH (09:36)
[2022-02-08] MEDS: HumuLIN 70/30 (300 UNITS/3 ML VIAL) SC SCH (09:49)
[2022-02-08] MEDS: Carvedilol 3.125 MG TAB PO SCH (09:51)
[2022-02-08 17:14] VITALS: BP 130/90; TEMP 97.5
== END 2022-02-08 12:50 | DRG 698 ==
LOC: ERS 12:56 → NEURO 17:23
PROVIDERS: ADMIT Internal Medicine; ATTEND Internal Medicine
DX: T83.511A Infection and inflammatory reaction due to indwelling urethral catheter, initial encounter (principal); A41.9 Sepsis, unspecified organism; G93.41 Metabolic encephalopathy; I13.0 Hypertensive heart and chronic kidney disease with heart failure and stage 1 through stage 4 chronic kidney disease, or unspecified chronic kidney disease; I50.32 Chronic diastolic (congestive) heart failure; N17.9 Acute kidney failure, unspecified; N13.6 Pyonephrosis; I42.9 Cardiomyopathy, unspecified; Z20.822 Contact with and (suspected) exposure to COVID-19; N18.30 Chronic kidney disease, stage 3 unspecified; E11.22 Type 2 diabetes mellitus with diabetic chronic kidney disease; E66.9 Obesity, unspecified; G51.0 Bell's palsy; Z66 Do not resuscitate; E78.5 Hyperlipidemia, unspecified; N40.1 Benign prostatic hyperplasia with lower urinary tract symptoms; R33.8 Other retention of urine; Y84.6 Urinary catheterization as the cause of abnormal reaction of the patient, or of later complication, without mention of misadventure at the time of the procedure; F03.90 Unspecified dementia, unspecified severity, without behavioral disturbance, psychotic disturbance, mood disturbance, and anxiety; I35.0 Nonrheumatic aortic (valve) stenosis; F41.9 Anxiety disorder, unspecified; F32.A Depression, unspecified; L89.152 Pressure ulcer of sacral region, stage 2; Z88.6 Allergy status to analgesic agent; Z79.899 Other long term (current) drug therapy; Z79.82 Long term (current) use of aspirin; Z79.4 Long term (current) use of insulin; Z68.34 Body mass index [BMI] 34.0-34.9, adult
CPT/HCPCS: 36415; 36416; 70450; 70496; 70498; 70551; 71045; 74176; 74230; 76770; 80048; 80053; 80306; 80307; 81003; 81015; 82550; 82553; 83605; 84484; 85025; 85610; 85730; 87040; 87077; 87086; 87186; 93005; 93306; 94640; 96365; 96367; 97139; J0692; J0696; J1644; J1815; J3370; J3490; J7050; J7620; Q9967; S0028; U0003; U0005

== ENCOUNTER 2022-05-27 10:42 | Inpatient (IN) | payer MEDICARE, MEDICAID ==
[2022-05-27] MEDS ORDERED: Cefepime 2 GM VIAL ONE (11:07)
[2022-05-27 11:41] LABS: Hemoglobin 12.5 g/dL (14.0-18.0); Mean Corpuscular HGB CONC 33.2 g/dL (32.0-36.0); Mean Corpuscular Hemoglobin 29.6 pg (27.0-31.0); Mean Corpuscular Volume 89.2 fl (78.0-98.0); Mean Platelet Volume 9.7 fL (7.4-10.4); Platelet Count 250 10x3/uL (130-400); Red Blood Cell (RBC) Count 4.23 mill/uL (4.70-6.10); White Blood Cell (WBC) Count 21.8 10x3/uL (4.8-10.8)
[2022-05-27] MEDS ORDERED: Fentanyl 100 MCG/2 ML VIAL ONE (11:46)
[2022-05-27 11:56] LABS: Band 22 % (5-11); Lymphocytes 2 % (21-51); MDiff Complete? YES; Monocytes 5 % (0-10); Neutrophil 71 % (42-75)
[2022-05-27 12:14] LABS: ALT (SGPT) 10 U/L (8-55); AST (SGOT) 14 U/L (5-34); Albumin 3.3 g/dL (3.4-4.8); Alkaline Phosphatase 71 U/L (40-110); Anion Gap 14 mmol/L (10-20); BUN (Urea Nitrogen) 43 mg/dL (8.4-25.7); Bilirubin, Total 0.9 mg/dL (0.2-1.2); Calc. Creatinine Clearance 0 mL/min (70-130); Calcium 8.8 mg/dL (7.8-10.44); Carbon Dioxide 27 mmol/L (23-31); Chloride 100 mmol/L (98-107); Estimated GFR 27; Globulin 3.6 g/dL (2.4-3.5); Glucose 233 mg/dL (83-110); Lipase 8 U/L (8-78); Potassium 4.8 mmol/L (3.5-5.1); Protein, Total 6.9 g/dL (5.8-8.1); Sodium 136 mmol/L (136-145)
[2022-05-27] MEDS ORDERED: VANCOMYCIN 2 GRAM/500 ML BAG 2 GM in Premix Bag 1 BAG IVPB SCH (12:15)
[2022-05-27 13:03] LABS: Clarity Turbid (Clear)
[2022-05-27 13:07] LABS: Glucose, Urine (Dipstick) Negative (Negative); Leukocyte Large (Negative); Nitrite Negative (Negative); Protein, Urine (Dipstick) Greater than 600 mg/dL (Neg-Trace)
[2022-05-27 13:08] LABS: Bacteria/HPF 3+ HPF (None Seen); Bilirubin Negative (Negative); Blood, Urine 3+ (Negative); Ketone, Urine 40 mg/dL (Negative); RBC/HPF Greater than 50 HPF (0-3); Urobilinogen Normal mg/dL (Less than 2); WBC/HPF Greater than 50 HPF (0-3)
[2022-05-27 13:09] LABS: Trichomonas/HPF None Seen HPF (None Seen); Yeast-Budding None Seen HPF (None Seen)
[2022-05-27 13:26] LABS: SARS-CoV-2 NAA Rapid Test Not Detected (NotDetected)
[2022-05-27 14:44] LABS: Troponin I 0.036 ng/mL (< 0.028)
[2022-05-27] MEDS ORDERED: Lidocaine 2% PF 5 ML VIAL ONE (15:03)
[2022-05-27] MEDS ORDERED: Acetaminophen 500 MG TAB PO PRN (15:08)
[2022-05-27] MEDS ORDERED: Dextrose 5% in Water 1,000 ML IV PRN (15:08)
[2022-05-27] MEDS ORDERED: Dextrose 50% Abboject 50 ML SYRINGE SLOW IVP PRN (15:08)
[2022-05-27] MEDS ORDERED: Communication Order-Pharmacy FS SCH (15:08)
[2022-05-27] MEDS ORDERED: Ondansetron PF 4 MG/2 ML Vial IVP PRN (15:08)
[2022-05-27] MEDS ORDERED: Ondansetron ODT 4 MG TAB PO PRN (15:08)
[2022-05-27] MEDS ORDERED: Lidocaine 2% 6 ML SYR FS SCH (15:30)
[2022-05-27 18:00] LABS: Troponin I 0.038 ng/mL (< 0.028)
[2022-05-27] MEDS ORDERED: [UNRECOGNIZED DRUG - REMARK] IVPB PRN (18:56)
[2022-05-27 19:00] VITALS: BMI 31.6
[2022-05-27] MEDS ORDERED: Vancomycin Dose by Levels Sliding Scale (Wt 71-99) FS SCH (19:15)
[2022-05-27] MEDS: Sodium Chloride 0.9% 1,000 ML IV SCH (21:00)
[2022-05-27] MEDS ORDERED: traMADol HCl 50 MG TAB ONE (21:08)
[2022-05-27] MEDS ORDERED: Diazepam 5 MG TAB ONE (21:08)
[2022-05-27] MEDS ORDERED: Famotidine 20 MG TAB ONE (21:09)
[2022-05-27] MEDS ORDERED: cefTRIAXone\\ROCEPHIN 2 GM VIAL ONE (21:09)
[2022-05-27] MEDS: cefTRIAXone\\ROCEPHIN 2 GM in Sodium Chloride 0.9% 100 ML IVPB SCH (21:10)
[2022-05-27] MEDS: Famotidine 20 MG TAB PO SCH (21:12)
[2022-05-27] MEDS: traMADol HCl 50 MG TAB PO SCH (21:26)
[2022-05-27] MEDS: Diazepam 5 MG TAB PO SCH (21:26)
[2022-05-27] MEDS: Docusate 100 MG CAP PO SCH (23:10)
[2022-05-28] MEDS: Sodium Chloride 0.9% 1,000 ML IV SCH ×2 (01:04→05:24)
[2022-05-28 05:39] LABS: Band 32 % (5-11); Hemoglobin 10.4 g/dL (14.0-18.0); Hypochromia SLIGHT = 6-15 cells (100X) (0-5/hpf); Lymphocytes 4 % (21-51); MDiff Complete? YES; Mean Corpuscular HGB CONC 32.9 g/dL (32.0-36.0); Mean Corpuscular Hemoglobin 29.4 pg (27.0-31.0); Mean Corpuscular Volume 89.1 fl (78.0-98.0); Mean Platelet Volume 9.7 fL (7.4-10.4); Neutrophil 64 % (42-75); Platelet Count 216 10x3/uL (130-400); Platelet Morphology Comment Appears Adequate; RBC Distribution Width 13.8 % (11.5-14.5); Red Blood Cell (RBC) Count 3.55 mill/uL (4.70-6.10); White Blood Cell (WBC) Count 15.4 10x3/uL (4.8-10.8)
[2022-05-28 05:54] LABS: ALT (SGPT) 11 U/L (8-55); AST (SGOT) 24 U/L (5-34); Albumin 2.7 g/dL (3.4-4.8); Alkaline Phosphatase 68 U/L (40-110); Anion Gap 15 mmol/L (10-20); BUN (Urea Nitrogen) 42 mg/dL (8.4-25.7); Bilirubin, Total 0.3 mg/dL (0.2-1.2); Calc. Creatinine Clearance 43 mL/min (70-130); Calcium 8.5 mg/dL (7.8-10.44); Carbon Dioxide 26 mmol/L (23-31); Chloride 103 mmol/L (98-107); Estimated GFR 41; Globulin 4.4 g/dL (2.4-3.5); Glucose 157 mg/dL (83-110); Potassium 3.6 mmol/L (3.5-5.1); Protein, Total 7.1 g/dL (5.8-8.1); Sodium 140 mmol/L (136-145)
[2022-05-28] MEDS ORDERED: Vancomycin HCl 1 GM in Sodium Chloride 0.9% 250 ML 300 ML IVPB SCH (09:00)
[2022-05-28] MEDS: Tamsulosin HCl 0.4 MG CAP PO SCH (10:03)
[2022-05-28] MEDS: Sertraline 25 MG TAB PO SCH (10:03)
[2022-05-28] MEDS: Docusate 100 MG CAP PO SCH ×2 (10:03→20:39)
[2022-05-28] MEDS: Diazepam 5 MG TAB PO SCH ×2 (10:03→20:38)
[2022-05-28] MEDS: traMADol HCl 50 MG TAB PO SCH ×2 (10:03→20:38)
[2022-05-28] MEDS ORDERED: Ipratropium/Albuterol 3 ML NEB NEB PRN (11:32)
[2022-05-28 13:00] LABS: Vancomycin, Random 15.5 ug/mL (See Comment)
[2022-05-28] MEDS ORDERED: Vancomycin 1 GM in Premix Bag 1 BAG IVPB SCH (13:00)
[2022-05-28] MEDS: Carvedilol 3.125 MG TAB PO SCH (17:54)
[2022-05-28] MEDS: cefTRIAXone\\ROCEPHIN 2 GM in Sodium Chloride 0.9% 100 ML IVPB SCH (20:38)
[2022-05-28] MEDS: Atorvastatin Calcium 40 MG TAB PO SCH (20:38)
[2022-05-28] MEDS: Famotidine 20 MG TAB PO SCH (20:39)
[2022-05-29 05:10] LABS: #Eosinphils 0.6 thou/uL (0.0-0.7); #Lymphocytes 1.4 thou/uL (1.20-3.40); #Monocytes 0.6 thou/uL (0.11-0.59); #Neutrophils 9.1 thou/uL (1.40-6.50); %Basophils 0.4 % (0.0-1.0); %Eosinophils 5.4 % (0.0-10.0); %Lymphocytes 11.6 % (21.0-51.0); %Monocytes 5.4 % (0.0-10.0); %Neutrophils 77.2 % (42.0-75.0); Hemoglobin 10.7 g/dL (14.0-18.0); Mean Corpuscular HGB CONC 32.1 g/dL (32.0-36.0); Mean Corpuscular Volume 90.3 fl (78.0-98.0); Mean Platelet Volume 9.4 fL (7.4-10.4); Platelet Count 209 10x3/uL (130-400); RBC Distribution Width 13.6 % (11.5-14.5); Red Blood Cell (RBC) Count 3.69 mill/uL (4.70-6.10); White Blood Cell (WBC) Count 11.8 10x3/uL (4.8-10.8)
[2022-05-29 05:25] LABS: Magnesium 1.8 mg/dL (1.6-2.6)
[2022-05-29 05:26] LABS: Anion Gap 13 mmol/L (10-20); BUN (Urea Nitrogen) 31 mg/dL (8.4-25.7); Calc. Creatinine Clearance 62 mL/min (70-130); Calcium 8.2 mg/dL (7.8-10.44); Carbon Dioxide 25 mmol/L (23-31); Chloride 104 mmol/L (98-107); Estimated GFR 64; Glucose 136 mg/dL (83-110); Potassium 2.9 mmol/L (3.5-5.1); Sodium 139 mmol/L (136-145)
[2022-05-29] MEDS: Aspirin 81 mg Enteric Coated Tablet PO SCH (08:38)
[2022-05-29] MEDS: Carvedilol 3.125 MG TAB PO SCH ×2 (08:38→17:37)
[2022-05-29] MEDS: Tamsulosin HCl 0.4 MG CAP PO SCH (08:39)
[2022-05-29] MEDS: Docusate 100 MG CAP PO SCH ×2 (08:39→21:13)
[2022-05-29] MEDS: Sertraline 25 MG TAB PO SCH (08:39)
[2022-05-29] MEDS: traMADol HCl 50 MG TAB PO SCH ×2 (08:39→21:13)
[2022-05-29] MEDS: Diazepam 5 MG TAB PO SCH ×2 (08:39→21:13)
[2022-05-29] MEDS ORDERED: Potassium Chloride 20 MEQ TAB PO SCH (13:00)
[2022-05-29] MEDS: HumaLOG 300 UNITS/3 ML VIAL SC PRN ×2 (17:43→21:12)
[2022-05-29] MEDS: Atorvastatin Calcium 40 MG TAB PO SCH (21:13)
[2022-05-29] MEDS: Famotidine 20 MG TAB PO SCH (21:14)
[2022-05-29] MEDS: cefTRIAXone\\ROCEPHIN 2 GM in Sodium Chloride 0.9% 100 ML IVPB SCH (21:14)
[2022-05-30 04:30] LABS: #Eosinphils 0.6 thou/uL (0.0-0.7); #Lymphocytes 1.5 thou/uL (1.20-3.40); #Monocytes 0.8 thou/uL (0.11-0.59); #Neutrophils 7.2 thou/uL (1.40-6.50); %Basophils 0.1 % (0.0-1.0); %Lymphocytes 14.9 % (21.0-51.0); %Monocytes 7.5 % (0.0-10.0); %Neutrophils 71.5 % (42.0-75.0); Hemoglobin 10.8 g/dL (14.0-18.0); Mean Corpuscular HGB CONC 31.4 g/dL (32.0-36.0); Mean Corpuscular Hemoglobin 28.3 pg (27.0-31.0); Mean Corpuscular Volume 90.1 fl (78.0-98.0); Mean Platelet Volume 8.9 fL (7.4-10.4); Platelet Count 235 10x3/uL (130-400); RBC Distribution Width 13.4 % (11.5-14.5); White Blood Cell (WBC) Count 10.1 10x3/uL (4.8-10.8)
[2022-05-30 04:51] LABS: Anion Gap 10 mmol/L (10-20); BUN (Urea Nitrogen) 20 mg/dL (8.4-25.7); Calc. Creatinine Clearance 90 mL/min (70-130); Calcium 8.6 mg/dL (7.8-10.44); Carbon Dioxide 28 mmol/L (23-31); Chloride 104 mmol/L (98-107); Estimated GFR 89; Glucose 172 mg/dL (83-110); Potassium 3.2 mmol/L (3.5-5.1); Sodium 139 mmol/L (136-145)
[2022-05-30] MEDS: HumaLOG 300 UNITS/3 ML VIAL SC PRN ×2 (07:57→11:08)
[2022-05-30] MEDS ORDERED: Potassium Chloride 20 MEQ TAB PO SCH ×2 (09:00→14:45)
[2022-05-30] MEDS ORDERED: Famotidine 20 MG TAB PO SCH (09:00)
[2022-05-30] MEDS: Diazepam 5 MG TAB PO SCH (09:33)
[2022-05-30] MEDS: Docusate 100 MG CAP PO SCH (09:33)
[2022-05-30] MEDS: Carvedilol 3.125 MG TAB PO SCH ×2 (09:33→15:55)
[2022-05-30] MEDS: Aspirin 81 mg Enteric Coated Tablet PO SCH (09:33)
[2022-05-30] MEDS: traMADol HCl 50 MG TAB PO SCH (09:34)
[2022-05-30] MEDS: Tamsulosin HCl 0.4 MG CAP PO SCH (09:35)
[2022-05-30] MEDS: Sertraline 25 MG TAB PO SCH (09:35)
[2022-05-30 15:38] VITALS: BP 145/82; TEMP 98.9
== END 2022-05-30 17:51 | DRG 698 ==
LOC: ERS 10:42 → ERHOLD 13:43 → 2NO 22:33
PROVIDERS: ADMIT Family Medicine; ATTEND Internal Medicine
DX: T83.511A Infection and inflammatory reaction due to indwelling urethral catheter, initial encounter (principal); A41.9 Sepsis, unspecified organism; G93.41 Metabolic encephalopathy; R65.21 Severe sepsis with septic shock; J96.01 Acute respiratory failure with hypoxia; I42.9 Cardiomyopathy, unspecified; I13.0 Hypertensive heart and chronic kidney disease with heart failure and stage 1 through stage 4 chronic kidney disease, or unspecified chronic kidney disease; N17.9 Acute kidney failure, unspecified; I50.22 Chronic systolic (congestive) heart failure; N40.1 Benign prostatic hyperplasia with lower urinary tract symptoms; R33.8 Other retention of urine; E11.22 Type 2 diabetes mellitus with diabetic chronic kidney disease; N18.30 Chronic kidney disease, stage 3 unspecified; E66.01 Morbid (severe) obesity due to excess calories; F03.90 Unspecified dementia, unspecified severity, without behavioral disturbance, psychotic disturbance, mood disturbance, and anxiety; Y84.6 Urinary catheterization as the cause of abnormal reaction of the patient, or of later complication, without mention of misadventure at the time of the procedure; E87.6 Hypokalemia; Z79.82 Long term (current) use of aspirin; Z79.4 Long term (current) use of insulin; Z79.899 Other long term (current) drug therapy; Z68.31 Body mass index [BMI] 31.0-31.9, adult
CPT/HCPCS: 36415; 36416; 51702; 70450; 71045; 74176; 80048; 80053; 80202; 81003; 81015; 82553; 83605; 83690; 83735; 83880; 84484; 85025; 87040; 87077; 87086; 87186; 93005; 93010; 93306; 96361; 96365; 96366; 96367; 96375; J0692; J0696; J1815; J2001; J3010; J3370; J3370-JW; J3490; J7050

== ENCOUNTER 2023-06-27 10:22 | Emergency (ER) | payer MEDICAID ==
[2023-06-27] MEDS ORDERED: Acetaminophen 500 MG TAB ONE (10:56)
[2023-06-27] MEDS ORDERED: Boostrix 0.5 ML (Tdap) VIAL (>/=7 yrs of age) ONE (10:56)
== END 2023-06-27 13:30 | disposition home or self-care (01) ==
LOC: ERS 10:22
DX: S06.0X0A Concussion without loss of consciousness, initial encounter (principal); S12.600A Unspecified displaced fracture of seventh cervical vertebra, initial encounter for closed fracture; S22.010A Wedge compression fracture of first thoracic vertebra, initial encounter for closed fracture; S08.0XXA Avulsion of scalp, initial encounter; S00.01XA Abrasion of scalp, initial encounter; I13.0 Hypertensive heart and chronic kidney disease with heart failure and stage 1 through stage 4 chronic kidney disease, or unspecified chronic kidney disease; E11.22 Type 2 diabetes mellitus with diabetic chronic kidney disease; N18.4 Chronic kidney disease, stage 4 (severe); I50.9 Heart failure, unspecified; E66.9 Obesity, unspecified; W01.198A Fall on same level from slipping, tripping and stumbling with subsequent striking against other object, initial encounter; Z23 Encounter for immunization
CPT/HCPCS: 70450; 71045; 72125; 90471; 90715; 93005; 94760

== ENCOUNTER 2023-07-13 13:29 | Outpatient (CLI) | payer MEDICARE, MEDICAID | END 2023-07-13 13:30 | disposition home or self-care (01) | LOC: RAD 13:29 | PROVIDERS: ATTEND Surgery | DX: S22.009A Unspecified fracture of unspecified thoracic vertebra, initial encounter for closed fracture (principal) | CPT/HCPCS: 72040 ==

== ENCOUNTER 2023-12-05 09:23 | Inpatient (IN) | payer MEDICARE, MEDICAID ==
[2023-12-05] MEDS ORDERED: Piperacillin/Tazobactam 4.5 GM VIAL ONE (09:43)
[2023-12-05 10:10] LABS: #Basophils 0.03 10x3/uL (0.0-0.2); #Eosinphils Less than 0.03 10x3/uL (0.0-0.7); %Basophils 0.2 % (0.0-1.0); %Monocytes 5.5 % (0.0-10.0); %Neutrophils 90.9 % (42.0-75.0); Hematocrit 37.4 % (42.0-52.0); Hemoglobin 11.9 g/dL (14.0-18.0); Mean Corpuscular HGB CONC 31.8 g/dL (32.0-36.0); Mean Corpuscular Hemoglobin 26.7 pg (27.0-31.0); Mean Corpuscular Volume 83.9 fL (78.0-98.0); Mean Platelet Volume 11.3 fL (7.4-10.4); Platelet Count 392 10x3/uL (130-400); RBC Distribution Width 16.9 % (11.5-14.5); Red Blood Cell (RBC) Count 4.46 mill/uL (4.70-6.10)
[2023-12-05 10:35] LABS: Troponin I 0.015 ng/mL (< 0.028)
[2023-12-05 10:59] LABS: ALT (SGPT) 13 U/L (8-55); AST (SGOT) 21 U/L (5-34); Albumin 2.2 g/dL (3.4-4.8); Alkaline Phosphatase 84 U/L (40-110); Anion Gap 24 mmol/L (10-20); Bilirubin, Total 0.5 mg/dL (0.2-1.2); Calc. Creatinine Clearance 0 mL/min (70-130); Calcium 8.8 mg/dL (7.8-10.44); Carbon Dioxide 16 mmol/L (23-31); Chloride 107 mmol/L (98-107); Estimated GFR 9; Globulin 4.9 g/dL (2.4-3.5); Glucose 145 mg/dL (83-110); Protein, Total 7.1 g/dL (5.8-8.1); Sodium 139 mmol/L (136-145)
[2023-12-05 11:00] LABS: Potassium 8.4 mmol/L (3.5-5.1)
[2023-12-05] MEDS ORDERED: Sodium Bicarb 50 MEQ/50 ML Abboject 8.4% SYRINGE ONE ×2 (11:06→12:06)
[2023-12-05] MEDS ORDERED: Dextrose 10% in Water 500 ML ONE (11:06)
[2023-12-05] MEDS ORDERED: Calcium Chloride 1 GM/10 ML Abboject SYRINGE ONE (11:06)
[2023-12-05] MEDS ORDERED: Insulin Regular, Human 100 UNIT/ML 10 ML VIAL ONE (11:07)
[2023-12-05] MEDS ORDERED: Sodium Polystyrene Sulfonate 15 GM (60 mL) BOT ONE (11:07)
[2023-12-05 11:11] LABS: Bacteria/HPF 4+ HPF (None Seen); Bilirubin Negative (Negative); Blood, Urine 3+ (Negative); CAUTI Indications for Culture Alt mental st,lethar; Clarity Extra Turbid (Clear); Glucose, Urine (Dipstick) Normal (Negative); Ketone, Urine Trace mg/dL (Negative); Leukocyte 500 Leu/uL (Negative); Nitrite Negative (Negative); Protein, Urine (Dipstick) Greater than 600 mg/dL (Neg-Trace); RBC/HPF Greater than 50 HPF (0-3); Specific Gravity, Urine 1.019 (1.002-1.036); Squamous Epithelial None Seen HPF (0-3); Urobilinogen Normal mg/dL (Less than 2); WBC/HPF Greater than 50 HPF (0-3)
[2023-12-05 11:15] LABS: Urine Culture Reflex Yes Yes
[2023-12-05 11:31] LABS: BUN (Urea Nitrogen) 129 mg/dL (8.4-25.7)
[2023-12-05 12:02] LABS: Influenza A by NAA Not Detected (NotDetected); Influenza B by NAA Not Detected (NotDetected); SARS-CoV-2 NAA Rapid Test Not Detected (NotDetected)
[2023-12-05] MEDS ORDERED: Ondansetron PF 4 MG/2 ML Vial IVP PRN (13:27)
[2023-12-05] MEDS ORDERED: Ondansetron ODT 4 MG TAB PO PRN (13:27)
[2023-12-05] MEDS ORDERED: Dextrose 50% Abboject 50 ML SYRINGE SLOW IVP PRN (13:59)
[2023-12-05] MEDS ORDERED: Glucagon 1 MG/ML KIT IM PRN (13:59)
[2023-12-05] MEDS ORDERED: HumaLOG 300 UNITS/3 ML VIAL SC PRN ×2 (13:59)
[2023-12-05] MEDS ORDERED: Dextrose 5% in Water 1,000 ML IV PRN (13:59)
[2023-12-05] MEDS ORDERED: Ipratropium/Albuterol 3 ML NEB NEB PRN (14:10)
[2023-12-05 14:29] LABS: Troponin I Less than 0.010 ng/mL (< 0.028)
[2023-12-05 14:38] LABS: Anion Gap 23 mmol/L (10-20); BUN (Urea Nitrogen) 115 mg/dL (8.4-25.7); Calc. Creatinine Clearance 0 mL/min (70-130); Calcium 8.5 mg/dL (7.8-10.44); Carbon Dioxide 17 mmol/L (23-31); Chloride 110 mmol/L (98-107); Estimated GFR 12; Glucose 204 mg/dL (83-110); Potassium 6.1 mmol/L (3.5-5.1); Sodium 144 mmol/L (136-145)
[2023-12-05] MEDS ORDERED: LOKELMA 10 GM PACKET PO SCH (15:00)
[2023-12-05 18:30] VITALS: BMI 17.5
[2023-12-05] MEDS: Vancomycin (BATCH) 1.25 GM in Premix 1 BAG IVPB SCH (18:48)
[2023-12-05] MEDS: Dextrose 50% Abboject 50 ML SYRINGE SLOW IVP SCH (18:49)
[2023-12-05] MEDS: Insulin Regular, Human 100 UNIT/ML 10 ML VIAL IVP SCH (18:49)
[2023-12-05] MEDS: Calcium Chloride 1 GM/10 ML Abboject SYRINGE IVP SCH (18:49)
[2023-12-05] MEDS: Sodium Bicarbonate 150 MEQ in Dextrose 5% in Water 1,000 ML IV SCH (18:50)
[2023-12-05 18:56] LABS: Troponin I 0.027 ng/mL (< 0.028)
[2023-12-05] MEDS: LOKELMA 10 GM PACKET PO SCH (19:14)
[2023-12-05 20:24] LABS: Anion Gap 18 mmol/L (10-20); BUN (Urea Nitrogen) 101 mg/dL (8.4-25.7); Calc. Creatinine Clearance 12 mL/min (70-130); Calcium 8.3 mg/dL (7.8-10.44); Carbon Dioxide 25 mmol/L (23-31); Chloride 106 mmol/L (98-107); Estimated GFR 16; Glucose 264 mg/dL (83-110); Potassium 4.2 mmol/L (3.5-5.1); Sodium 145 mmol/L (136-145)
[2023-12-05] MEDS: Acetaminophen 325 MG TAB PO SCH (21:29)
[2023-12-05] MEDS: cefTRIAXone\\ROCEPHIN 1 GM in Sodium Chloride 0.9% 100 ML IVPB SCH (21:29)
[2023-12-06 04:34] LABS: #Basophils Less than 0.03 10x3/uL (0.0-0.2); %Basophils 0.1 % (0.0-1.0); %Eosinophils 0.5 % (0.0-10.0); %Lymphocytes 6.4 % (21.0-51.0); %Monocytes 7.4 % (0.0-10.0); Hematocrit 34.2 % (42.0-52.0); Mean Corpuscular HGB CONC 32.2 g/dL (32.0-36.0); Mean Corpuscular Hemoglobin 26.5 pg (27.0-31.0); Mean Corpuscular Volume 82.4 fL (78.0-98.0); Mean Platelet Volume 11.4 fL (7.4-10.4); Platelet Count 338 10x3/uL (130-400); RBC Distribution Width 17.2 % (11.5-14.5); Red Blood Cell (RBC) Count 4.15 mill/uL (4.70-6.10)
[2023-12-06 05:21] LABS: ALT (SGPT) 11 U/L (8-55); AST (SGOT) 14 U/L (5-34); Alkaline Phosphatase 77 U/L (40-110); Anion Gap 18 mmol/L (10-20); BUN (Urea Nitrogen) 92 mg/dL (8.4-25.7); Bilirubin, Total 0.3 mg/dL (0.2-1.2); Calc. Creatinine Clearance 14 mL/min (70-130); Calcium 8.8 mg/dL (7.8-10.44); Carbon Dioxide 29 mmol/L (23-31); Chloride 108 mmol/L (98-107); Estimated GFR 19; Globulin 4.2 g/dL (2.4-3.5); Glucose 127 mg/dL (83-110); Potassium 3.6 mmol/L (3.5-5.1); Protein, Total 6.2 g/dL (5.8-8.1); Sodium 151 mmol/L (136-145)
[2023-12-06] MEDS ORDERED: Vancomycin Dose by Levels Sliding Scale (Wt <71) FS SCH (08:00)
[2023-12-06] MEDS ORDERED: Vancomycin 1 GM in Sodium Chloride 0.9% 250 ML 250 ML IVPB SCH (09:00)
[2023-12-06] MEDS: Dextrose 5% in Water 1,000 ML IV SCH (09:44)
[2023-12-06] MEDS: Tamsulosin HCl 0.4 MG CAP PO SCH (09:45)
[2023-12-06] MEDS: Pantoprazole 40 MG VIAL IVP SCH (09:45)
[2023-12-06 10:39] VITALS: BMI 17.5
[2023-12-06] MEDS: Vancomycin HCl 750 MG in Sodium Chloride 0.9% 250 ML 250 ML IVPB SCH (14:42)
[2023-12-06 15:01] LABS: Anion Gap 18 mmol/L (10-20); BUN (Urea Nitrogen) 82 mg/dL (8.4-25.7); Calc. Creatinine Clearance 18 mL/min (70-130); Calcium 8.5 mg/dL (7.8-10.44); Carbon Dioxide 24 mmol/L (23-31); Chloride 111 mmol/L (98-107); Estimated GFR 26; Glucose 185 mg/dL (83-110); Potassium 3.1 mmol/L (3.5-5.1); Sodium 150 mmol/L (136-145)
[2023-12-06] MEDS: Insulin Lispro 100 UNIT/ML 10 ML VIAL SC PRN ×2 (16:47→21:40)
[2023-12-06 21:22] LABS: Magnesium 1.9 mg/dL (1.6-2.6); Potassium 2.7 mmol/L (3.5-5.1)
[2023-12-06] MEDS: Magnesium 2 GM/50 ML(in water) 2 GM in Premix 1 BAG IVPB SCH (22:29)
[2023-12-07 08:03] LABS: #Basophils Less than 0.03 10x3/uL (0.0-0.2); %Basophils 0.1 % (0.0-1.0); %Eosinophils 1.3 % (0.0-10.0); %Lymphocytes 9.9 % (21.0-51.0); %Monocytes 7.6 % (0.0-10.0); %Neutrophils 78.5 % (42.0-75.0); Hematocrit 34.3 % (42.0-52.0); Hemoglobin 10.6 g/dL (14.0-18.0); Mean Corpuscular HGB CONC 30.9 g/dL (32.0-36.0); Mean Corpuscular Volume 87.3 fL (78.0-98.0); Mean Platelet Volume 11.3 fL (7.4-10.4); Platelet Count 319 10x3/uL (130-400); RBC Distribution Width 17.4 % (11.5-14.5); Red Blood Cell (RBC) Count 3.93 mill/uL (4.70-6.10)
[2023-12-07 08:26] LABS: ALT (SGPT) 13 U/L (8-55); AST (SGOT) 17 U/L (5-34); Albumin 2.1 g/dL (3.4-4.8); Alkaline Phosphatase 79 U/L (40-110); Anion Gap 12 mmol/L (10-20); BUN (Urea Nitrogen) 58 mg/dL (8.4-25.7); Bilirubin, Total 0.4 mg/dL (0.2-1.2); Calc. Creatinine Clearance 26 mL/min (70-130); Calcium 8.2 mg/dL (7.8-10.44); Carbon Dioxide 31 mmol/L (23-31); Chloride 106 mmol/L (98-107); Estimated GFR 42; Glucose 206 mg/dL (83-110); Potassium 2.5 mmol/L (3.5-5.1); Protein, Total 6.1 g/dL (5.8-8.1); Sodium 146 mmol/L (136-145)
[2023-12-07] MEDS ORDERED: Potassium Chloride 40 MEQ in Dextrose 5% in Water 1,000 ML IV SCH (08:45)
[2023-12-07] MEDS ORDERED: Tamsulosin HCl 0.4 MG CAP ONE (10:32)
[2023-12-07] MEDS ORDERED: Potassium Chloride 20 MEQ TAB ONE (10:32)
[2023-12-07] MEDS ORDERED: Acetaminophen 325 MG TAB ONE (10:32)
[2023-12-07] MEDS: Potassium Chloride 20 MEQ TAB PO SCH ×2 (14:52→23:21)
[2023-12-07] MEDS: Potassium Chloride 40 MEQ, Admixture Fee 1 EACH in Dextrose 5% in Water 1,000 ML IV SCH (14:53)
[2023-12-07] MEDS ORDERED: cefTRIAXone (ROCEPHIN) 1 GM VIAL ONE (16:05)
[2023-12-07] MEDS ORDERED: Sodium Chloride 0.9% 250 ML BAG (BAXTER) ONE (17:20)
[2023-12-07] MEDS ORDERED: Vancomycin HCl 750 MG VIAL ONE (17:20)
[2023-12-07] MEDS: Vancomycin HCl 750 MG in Sodium Chloride 0.9% 250 ML 250 ML IVPB SCH (17:20)
[2023-12-07 19:37] LABS: Potassium 3.2 mmol/L (3.5-5.1)
[2023-12-08] MEDS: Potassium Chloride 20 MEQ TAB PO SCH (03:51)
[2023-12-08 08:30] LABS: Anion Gap 9 mmol/L (10-20); BUN (Urea Nitrogen) 27 mg/dL (8.4-25.7); Calc. Creatinine Clearance 49 mL/min (70-130); Calcium 8.2 mg/dL (7.8-10.44); Carbon Dioxide 25 mmol/L (23-31); Chloride 109 mmol/L (98-107); Estimated GFR 86; Glucose 165 mg/dL (83-110); Sodium 139 mmol/L (136-145)
[2023-12-08 08:37] LABS: Hematocrit 37.5 % (42.0-52.0); Hemoglobin 11.2 g/dL (14.0-18.0); Mean Corpuscular HGB CONC 29.9 g/dL (32.0-36.0); Mean Platelet Volume 10.9 fL (7.4-10.4); Platelet Count 285 10x3/uL (130-400); RBC Distribution Width 16.9 % (11.5-14.5); Red Blood Cell (RBC) Count 4.31 mill/uL (4.70-6.10)
[2023-12-08 09:53] LABS: Band 1 % (5-11); Burr Cells SLIGHT = 2-5 cells HPF (0-1); Elliptocytes SLIGHT = 2-5 cells HPF (0-1); Eosinophils 1 % (0-10); Lymphocytes 9 % (21-51); Monocytes 11 % (0-10); Neutrophil 75 % (42-75); Platelet Adequacy Comment Platelets Normal; Poikilocytosis SLIGHT = 6-15 cells HPF (0-5); Polychromasia SLIGHT = 2-3 cells HPF (0-2)
[2023-12-08 13:08] LABS: Vancomycin, Trough 10.5 ug/mL
[2023-12-08] MEDS: Vancomycin (BATCH) 1.25 GM in Premix 1 BAG IVPB SCH (17:02)
[2023-12-09 04:54] LABS: Anion Gap 9 mmol/L (10-20); BUN (Urea Nitrogen) 18 mg/dL (8.4-25.7); Calc. Creatinine Clearance 57 mL/min (70-130); Calcium 7.7 mg/dL (7.8-10.44); Carbon Dioxide 23 mmol/L (23-31); Chloride 110 mmol/L (98-107); Estimated GFR 91; Glucose 161 mg/dL (83-110); Potassium 3.8 mmol/L (3.5-5.1); Sodium 138 mmol/L (136-145)
[2023-12-09 10:14] LABS: Hematocrit 33.4 % (42.0-52.0); Hemoglobin 10.3 g/dL (14.0-18.0); Mean Corpuscular HGB CONC 30.8 g/dL (32.0-36.0); Mean Corpuscular Hemoglobin 26.3 pg (27.0-31.0); Mean Corpuscular Volume 85.4 fL (78.0-98.0); Platelet Count 271 10x3/uL (130-400); RBC Distribution Width 16.6 % (11.5-14.5); Red Blood Cell (RBC) Count 3.91 mill/uL (4.70-6.10)
[2023-12-09 10:51] LABS: Anisocytosis SLIGHT = 6-15 cells HPF (0-5); Burr Cells SLIGHT = 2-5 cells HPF (0-1); Elliptocytes SLIGHT = 2-5 cells HPF (0-1); Eosinophils 10 % (0-10); Hypochromia SLIGHT = 6-15 cells HPF (0-5); Lymphocytes 11 % (21-51); Macrocytosis SLIGHT = 6-15 cells HPF (0-5); Monocytes 12 % (0-10); Neutrophil 67 % (42-75); Ovalocytes SLIGHT = 2-5 cells HPF (0-1); Platelet Adequacy Comment Platelets Normal; Polychromasia SLIGHT = 2-3 cells HPF (0-2)
[2023-12-10 05:23] LABS: Vancomycin, Random 20.6 ug/mL (See Comment)
[2023-12-10 05:29] LABS: Anion Gap 11 mmol/L (10-20); BUN (Urea Nitrogen) 11 mg/dL (8.4-25.7); Calc. Creatinine Clearance 60 mL/min (70-130); Calcium 7.7 mg/dL (7.8-10.44); Carbon Dioxide 24 mmol/L (23-31); Chloride 110 mmol/L (98-107); Estimated GFR 92; Glucose 135 mg/dL (83-110); Potassium 3.6 mmol/L (3.5-5.1); Sodium 141 mmol/L (136-145)
[2023-12-10] MEDS: Vancomycin 1 GM in Premix 1 BAG IVPB SCH (08:22)
[2023-12-10] MEDS ORDERED: fentaNYL PF 100 MCG/2 ML SYRINGE ONE (09:33)
[2023-12-10] MEDS ORDERED: Ketamine In 0.9 % NaCl 50 MG/5 ML SYRINGE ONE (09:33)
[2023-12-10] MEDS ORDERED: PROPOFOL 20 ML ONE (09:33)
[2023-12-10] MEDS ORDERED: Iopamidol 0 ML ONE (09:45)
[2023-12-10] MEDS ORDERED: Bupivacaine 0.25% HCL 30 ML VIAL ONE (09:45)
[2023-12-10] MEDS ORDERED: PHENYLEPHRINE-NS 100 MCG/ML 10 ML SYRINGE ONE ×2 (10:14→10:42)
[2023-12-10] MEDS ORDERED: Rocuronium Bromide 10 MG/ML (10ML VIAL) ONE (10:20)
[2023-12-10] MEDS ORDERED: Dexamethasone 4 mg/ml Vial ONE ×2 (10:39→10:43)
[2023-12-10] MEDS ORDERED: Ondansetron PF 4 MG/2 ML Vial ONE (10:39)
[2023-12-10] MEDS ORDERED: Glycopyrrolate 0.2 MG/ML 5 ML SYRINGE ONE (10:42)
[2023-12-11 05:55] LABS: Anion Gap 11 mmol/L (10-20); BUN (Urea Nitrogen) 13 mg/dL (8.4-25.7); Calc. Creatinine Clearance 51 mL/min (70-130); Calcium 7.8 mg/dL (7.8-10.44); Carbon Dioxide 22 mmol/L (23-31); Chloride 111 mmol/L (98-107); Estimated GFR 88; Glucose 127 mg/dL (83-110); Potassium 3.7 mmol/L (3.5-5.1); Sodium 140 mmol/L (136-145)
[2023-12-11] MEDS: Vancomycin 1 GM in Premix 1 BAG IVPB SCH (16:35)
[2023-12-12] MEDS: Amoxicillin/Potassium Clav 875 MG TAB PO SCH (16:17)
[2023-12-12 16:21] VITALS: BP 119/75; TEMP 97.6
[2023-12-12] MEDS ORDERED: Amoxicillin/Potassium Clav 875 MG TAB PO SCH (21:00)
== END 2023-12-12 17:30 | DRG 698 ==
LOC: ERS 09:23 → ERHOLD 13:29 → 2NO 16:55
PROVIDERS: ADMIT Internal Medicine; ATTEND Internal Medicine
PROC: 0T9B70Z Drainage of Bladder with Drainage Device, Via Natural or Artificial Opening (ICD-10-PCS; principal; 2023-12-05)
PROC: 0TCB8ZZ Extirpation of Matter from Bladder, Via Natural or Artificial Opening Endoscopic (ICD-10-PCS; 2023-12-10)
DX: T83.511A Infection and inflammatory reaction due to indwelling urethral catheter, initial encounter (principal); G93.41 Metabolic encephalopathy; N13.6 Pyonephrosis; I50.22 Chronic systolic (congestive) heart failure; I13.0 Hypertensive heart and chronic kidney disease with heart failure and stage 1 through stage 4 chronic kidney disease, or unspecified chronic kidney disease; E87.0 Hyperosmolality and hypernatremia; N17.9 Acute kidney failure, unspecified; E44.0 Moderate protein-calorie malnutrition; E87.5 Hyperkalemia; E11.22 Type 2 diabetes mellitus with diabetic chronic kidney disease; F03.90 Unspecified dementia, unspecified severity, without behavioral disturbance, psychotic disturbance, mood disturbance, and anxiety; N18.30 Chronic kidney disease, stage 3 unspecified; Z88.5 Allergy status to narcotic agent; Z79.899 Other long term (current) drug therapy; Z79.82 Long term (current) use of aspirin; N40.1 Benign prostatic hyperplasia with lower urinary tract symptoms; Z66 Do not resuscitate; E66.9 Obesity, unspecified; F41.9 Anxiety disorder, unspecified; F32.A Depression, unspecified; E88.09 Other disorders of plasma-protein metabolism, not elsewhere classified; D63.1 Anemia in chronic kidney disease
CPT/HCPCS: 36415; 36416; 51702; 70450; 70551; 71045; 74176; 80048; 80053; 80202; 81001; 82140; 82565; 83605; 83735; 84484; 85025; 87040; 87077; 87086; 87149; 87186; 93005; 94760; 96374; 96375; 96376; 97139; C9113; J0665; J0696; J1100; J1815; J2405; J2470; J2543; J2704; J3370; J3370-JW; J3475; J3490; J7050; J7070; J7999; Q9967